=== PATIENT | male | born 1945 | race Caucasian/White ===

== ENCOUNTER 2018-10-18 15:44 | Emergency (ER) | payer OTHER, MEDICARE ==
[~2018-10-18] VITALS: Ht 177.8 cm; Wt 93.6 kg
[~2018-10-18 15:44] MED LIST: AMIT25TA2 PO; ASPI81TA83 OR; DIOV80TA OR; SKEL800T5 OR; TYLENOL #3 OR; VICO5TAB PO; VITA25003 SL; [UNRECOGNIZED DRUG - OTHER] INJ
[2018-10-18] MEDS ORDERED: LOSARTAN-HCTZ PO (15:57)
--- NOTE | 2018-10-18 17:26 | REP ---
RIGHT ANKLE COMPLETE: 10/18/2018. Clinical history: Trauma. Findings: There is an oblique fracture of the distal fibula angled inferiorly and medially toward the corner of the mortise joint. There is a few millimeters of lateral displacement of the distal fragment. No gross widening of the lateral aspect of the mortise joint. No evidence of the medial or posterior malleolar fracture. Talus and calcaneus are without fracture. There is a heel spur at the Achilles insertion. Prominent soft tissue swelling anterolateral aspect of the ankle due to the fracture. Impression: 1. An oblique fracture distal fibula to the lateral corner of the ankle mortise at the talar dome. A few millimeters of displacement without angulation and no gross disruption of the mortise joint. Electronically Signed by Claude Ellison MD 10/18/2018 10:02 P
[2018-10-18] MEDS ORDERED: IBUP-1022 PO (18:02)
[2018-10-18 18:33] VITALS: BP 119/74
== END 2018-10-18 18:34 | disposition home or self-care (01) ==
LOC: M ED 15:44
DX: S82.831A Other fracture of upper and lower end of right fibula, initial encounter for closed fracture (principal); W19.XXXA Unspecified fall, initial encounter; Y92.89 Other specified places as the place of occurrence of the external cause; Y93.9 Activity, unspecified; Y99.0 Civilian activity done for income or pay; I10 Essential (primary) hypertension; Z79.899 Other long term (current) drug therapy

== ENCOUNTER → 2022-10-18 | Outpatient (REF) | payer MEDICARE ==
[~2022-10-18] MED LIST changes: +IBUP-1022 PO; +LOSARTAN-HCTZ PO
== END ==
LOC: M LAB REF 12:03
PROVIDERS: ATTEND Internal Medicine
DX: D51.9 Vitamin B12 deficiency anemia, unspecified (principal)

== ENCOUNTER 2023-11-13 09:21 | Observation (INO) | payer MEDICARE ==
[~2023-11-13] VITALS: Ht 182.9 cm; Wt 84.1 kg
[2023-11-13 10:01] LABS: BASO % 0.6 % (0.0-1.0); EOS % 0.4 % (0.0-3.0); HEMATOCRIT 37.5 % (42.0-52.0); HEMOGLOBIN 12.9 g/dl (13.5-17.5); LYMPH # 1.1 10^3/uL (1.5-5.0); LYMPH % 15.5 % (24.0-44.0); MEAN CORPUSCULAR HEMOGLOBIN 33.2 pg (27.0-33.0); MEAN CORPUSCULAR HGB CONC 34.4 g/dl (32.0-36.5); MEAN CORPUSCULAR VOLUME 96.4 fl (80.0-96.0); MONO # 0.6 10^3/uL (0.0-0.8); MONO % 8.9 % (2.0-8.0); NEUTROPHILS # 5.3 10^3/uL (1.5-8.5); NEUTROPHILS % 74.2 % (36.0-66.0); PLATELET COUNT, AUTOMATED 156 10^3/uL (150-450); RED BLOOD COUNT 3.89 10^6/uL (4.30-6.10); WHITE BLOOD COUNT 7.2 10^3/uL (4.0-10.0)
[2023-11-13 10:36] LABS: BLOOD UREA NITROGEN 18 MG/DL (9-23); CALCIUM LEVEL 7.9 MG/DL (8.3-10.6); CARBON DIOXIDE LEVEL 29 MMOL/L (20-31); CHLORIDE LEVEL 100 MMOL/L (98-107); CK-MB VALUE MASS < 1.0 NG/ML (<3.6); CPK CREATINE PHOSPHOKINASE 92 U/L (46-171); CREATININE FOR GFR 0.98 MG/DL (0.70-1.30); GLOMERULAR FILTRATION RATE > 60.0 (>42); GLUCOSE, FASTING 105 MG/DL (74-106); MAGNESIUM LEVEL 1.7 MG/DL (1.8-2.4); MB/CK RELATIVE INDEX 1.08 (< OR =4); SODIUM LEVEL 136 MMOL/L (136-145)
[2023-11-13 10:39] LABS: THYROID STIMULATING HORMONE 0.844 uIU/ML (0.55-4.78)
[2023-11-13] MEDS ORDERED: ACET1TAB55 PO (10:41)
[2023-11-13] MEDS ORDERED: ROBI1LIQ9 PO (10:41)
[2023-11-13] MEDS ORDERED: CYAN1000VL IM (10:41)
[2023-11-13] MEDS ORDERED: LOSA50TA5 PO (10:41)
[2023-11-13] MEDS ORDERED: HOME MED LIST COMPLETE! XX SCH (10:45)
[2023-11-13] MEDS ORDERED: ISOVUE-370 76% 100ML VIAL As Ordered ONE (10:59)
[2023-11-13 11:42] LABS: CK-MB VALUE MASS < 1.0 NG/ML (<3.6)
[2023-11-13 11:47] LABS: CPK CREATINE PHOSPHOKINASE 100 U/L (46-171)
[2023-11-13] MEDS ORDERED: BENZONATATE 100MG CAPSULE PO PRN (13:30)
[2023-11-13] MEDS: LR 1,000 ML IV ONE (13:30)
[2023-11-13 13:55] LABS: ALBUMIN 3.2 G/DL (3.2-5.2); ALKALINE PHOSPHATASE 64 U/L (46-116); ALT/SGPT 23 U/L (7.0-40); AST/SGOT 24 U/L (<34); BILIRUBIN,DIRECT 0.2 MG/DL (<0.4); BILIRUBIN,TOTAL 0.5 MG/DL (0.3-1.2); TOTAL PROTEIN 5.7 G/DL (5.7-8.2)
[2023-11-13 15:15] VITALS: BP 160/70; TEMP 98.4; O2SAT 97
[2023-11-13] MEDS: MAG SULF 1GM/100ML (MAG RUN) 1 GM in IV 1 EA IV SCH (15:32)
[2023-11-13] MEDS ORDERED: REMDESIVIR 200 MG in NS 250 ML IV ONE (16:00)
[2023-11-13] MEDS: ACETAMINOPHEN TAB 650MG DOSE (2X325MG) PO PRN (22:29)
[2023-11-13 22:30] VITALS: BP 133/64; TEMP 101.8; O2SAT 95
[2023-11-13 23:29] VITALS: TEMP 101.2
[2023-11-14 00:20] LABS: BASO % 0.4 % (0.0-1.0); EOS % 0.2 % (0.0-3.0); HEMATOCRIT 36.2 % (42.0-52.0); HEMOGLOBIN 12.6 g/dl (13.5-17.5); LYMPH # 1.5 10^3/uL (1.5-5.0); LYMPH % 27.6 % (24.0-44.0); MEAN CORPUSCULAR HEMOGLOBIN 33.4 pg (27.0-33.0); MEAN CORPUSCULAR HGB CONC 34.8 g/dl (32.0-36.5); MONO # 0.4 10^3/uL (0.0-0.8); MONO % 8.1 % (2.0-8.0); NEUTROPHILS # 3.5 10^3/uL (1.5-8.5); NEUTROPHILS % 63.5 % (36.0-66.0); PLATELET COUNT, AUTOMATED 166 10^3/uL (150-450); RED BLOOD COUNT 3.77 10^6/uL (4.30-6.10); WHITE BLOOD COUNT 5.4 10^3/uL (4.0-10.0)
[2023-11-14 00:45] LABS: ALBUMIN 3.3 G/DL (3.2-5.2); ALKALINE PHOSPHATASE 62 U/L (46-116); ALT/SGPT 21 U/L (7.0-40); AST/SGOT 19 U/L (<34); BILIRUBIN,TOTAL 0.4 MG/DL (0.3-1.2); BLOOD UREA NITROGEN 15 MG/DL (9-23); CALCIUM LEVEL 8.3 MG/DL (8.3-10.6); CARBON DIOXIDE LEVEL 29 MMOL/L (20-31); CHLORIDE LEVEL 104 MMOL/L (98-107); CREATININE FOR GFR 0.95 MG/DL (0.70-1.30); GLOMERULAR FILTRATION RATE > 60.0 (>42); GLUCOSE, FASTING 103 MG/DL (74-106); POTASSIUM SERUM 4.2 MMOL/L (3.5-5.1); SODIUM LEVEL 137 MMOL/L (136-145); TOTAL PROTEIN 5.7 G/DL (5.7-8.2)
[2023-11-14 00:52] LABS: PROCALCITONIN 0.08 ng/ml
[2023-11-14 03:33] VITALS: BP 121/64; TEMP 99.6; O2SAT 96
[2023-11-14 06:19] LABS: HEMATOCRIT 36.4 % (42.0-52.0); HEMOGLOBIN 12.4 g/dl (13.5-17.5); MEAN CORPUSCULAR HEMOGLOBIN 32.9 pg (27.0-33.0); MEAN CORPUSCULAR HGB CONC 34.1 g/dl (32.0-36.5); MEAN CORPUSCULAR VOLUME 96.6 fl (80.0-96.0); PLATELET COUNT, AUTOMATED 148 10^3/uL (150-450); RED BLOOD COUNT 3.77 10^6/uL (4.30-6.10); WHITE BLOOD COUNT 4.5 10^3/uL (4.0-10.0)
[2023-11-14 06:48] LABS: BLOOD UREA NITROGEN 15 MG/DL (9-23); CALCIUM LEVEL 7.7 MG/DL (8.3-10.6); CARBON DIOXIDE LEVEL 29 MMOL/L (20-31); CHLORIDE LEVEL 102 MMOL/L (98-107); CREATININE FOR GFR 0.89 MG/DL (0.70-1.30); GLOMERULAR FILTRATION RATE > 60.0 (>42); GLUCOSE, FASTING 166 MG/DL (74-106); POTASSIUM SERUM 4.1 MMOL/L (3.5-5.1); SODIUM LEVEL 138 MMOL/L (136-145)
[2023-11-14] MEDS: ENOXAPARIN 40MG/0.4ML SYRINGE (J1650 PER 10MG) SC SCH (08:59)
[2023-11-14 09:00] VITALS: O2SAT 94
[2023-11-14 09:13] VITALS: BP 120/63
[2023-11-14] MEDS: LOSARTAN 50MG TABLET PO SCH (09:13)
[2023-11-14 11:05] VITALS: TEMP 99.3
[2023-11-14] MEDS ORDERED: REMDESIVIR 100 MG in NS 250 ML IV SCH (16:00)
== END 2023-11-14 12:57 | disposition home or self-care (01) ==
LOC: EDBD 09:21 → M ED 10:04 → M ED INP 10:05 → M MSPAV 15:08
PROVIDERS: ADMIT Internal Medicine; ATTEND Internal Medicine
DX: R55 Syncope and collapse (principal); R00.1 Bradycardia, unspecified; U07.1 COVID-19; E83.42 Hypomagnesemia; Z20.828 Contact with and (suspected) exposure to other viral communicable diseases; I10 Essential (primary) hypertension; G47.33 Obstructive sleep apnea (adult) (pediatric); E53.8 Deficiency of other specified B group vitamins; M51.36 Other intervertebral disc degeneration, lumbar region; Z91.199 Patient's noncompliance with other medical treatment and regimen due to unspecified reason; Z79.899 Other long term (current) drug therapy; Z82.0 Family history of epilepsy and other diseases of the nervous system
CPT/HCPCS: 36415; 70450; 70496; 70498; 71045; 80048; 80053; 80076; 82550; 82553; 83605; 83735; 84145; 84443; 84484; 85025; 85027; 87040; 87486; 87581; 87633; 87798; 93005; 93041; 93306; 94760; 96361; 96365; 96372; 99285; G0378; J1650; J3475; Q9967

== ENCOUNTER 2023-12-05 09:03 | Day surgery (SDC) | payer MEDICARE ==
[~2023-12-05] VITALS: Ht 182.9 cm; Wt 78.5 kg
[~2023-12-05 09:03] MED LIST changes: +ACET1TAB55 PO; +CYAN1000VL IM; +LOSA50TA5 PO; +ROBI1LIQ9 PO; +propofoL 200 MG/20 ML VIAL As Ordered ONE; +propofoL 500 MG/50 ML VIAL As Ordered ONE
[2023-12-05] MEDS: NS 1,000 ML IV ONE (09:23)
[2023-12-05 10:09] VITALS: TEMP 97.4
[2023-12-05 10:30] VITALS: BP 119/64; O2SAT 97
== END 2023-12-05 10:34 | disposition home or self-care (01) ==
LOC: M OPP 09:03
PROVIDERS: ATTEND Internal Medicine Gastroenterology
DX: Z12.11 Encounter for screening for malignant neoplasm of colon (principal); K64.0 First degree hemorrhoids; Z86.010 Personal history of colon polyps; I10 Essential (primary) hypertension; Z79.899 Other long term (current) drug therapy